=== PATIENT | female | born 1985 | race Caucasian/White ===

== ENCOUNTER 2025-03-03 06:03 | Observation (INO) ==
--- NOTE | 2025-02-21 10:32 | Anesthesiology Consultation ---
Date of Service February 21, 2025 Assessment & Plan Chart Review Chart Review: Acceptable Risk for Surgery and Patient NOT seen in Pre Admission Testing History Surgery Operation Date: 03/03/25 07:30 Proposed Procedures p Abdominoplasty with Suction Assiststed Lipectomy of Trunk - Laura Nguyen MD Height/Weight Height: 5 ft 1.5 in Weight: 66.678 kg Allergies Allergy/AdvReac Type Severity Reaction Status Date / Time cashew nut Allergy Severe rash and Verified 02/21/25 07:39 hives fluconazole [From Diflucan] Allergy Severe Hives Verified 02/21/25 07:39 Medications Home Medications Medication Instructions Recorded Confirmed Last Taken biotin 1 mg capsule 1 mg PO DAILY 01/14/25 02/21/25 Unknown calcium carbonate 600 mg PO DAILY 01/14/25 02/21/25 Unknown cholecalciferol (vitamin D3) 125 5,000 unit PO DAILY 01/14/25 02/21/25 Unknown mcg (5,000 unit) capsule cyanocobalamin (vitamin B-12) 500 500 mcg PO DAILY 01/14/25 02/21/25 Unknown mcg tablet dapsone 7.5 % topical gel 1 applic topical DAILY 01/14/25 02/21/25 Unknown duloxetine 30 mg capsule,delayed 30 mg PO HS 01/14/25 02/21/25 Unknown release fluoride (sodium) 1.1 % dental 1 applic dental DAILY 01/14/25 02/21/25 Unknown cream (SF 5000 Plus) levonorgestrel 21 mcg/24 hr (up to 1 device intrauterine UD 01/14/25 02/21/25 Unknown 8 years) 52 mg intrauterine device (Mirena) levothyroxine 88 mcg tablet 88 mcg PO QAM 01/14/25 02/21/25 Unknown menthol 5 % topical patch (Icy Hot 1 patch topical DAILY PRN Pain 01/14/25 02/21/25 Unknown (menthol)) multivitamin 1 tab PO DAILY 01/14/25 02/21/25 Unknown nystatin 100,000 unit/gram topical 1 applic topical DAILY 01/14/25 02/21/25 Unknown powder pantoprazole 40 mg tablet,delayed 40 mg PO QAM 01/14/25 02/21/25 Unknown release semaglutide (weight loss) 1 mg/0.5 1 mg subcut Q7D 01/14/25 02/21/25 Unknown mL subcutaneous pen injector (Wegovy) oxycodone-acetaminophen 5 mg-325 1 tab PO Q4H PRN pain #18 tabs 02/19/25 02/21/25 Unknown mg tablet (Endocet) semaglutide (weight loss) 0.5 0.5 mg subcut Q7D 02/21/25 02/21/25 02/15/25 mg/0.5 mL subcutaneous pen injector Past Medical History Medical History History of pneumonia ~2019 - no hospitalization. no issues since. History of COVID-19 ~2019 - no hopsitalization, resolved Hx of sleep apnea hx of cpap at night - resolved with weightloss Depression with anxiety GERD (gastroesophageal reflux disease) Hypothyroidism Acne Hypertriglyceridemia resolved with weightloss Iron deficiency Past Family History Family History Other Alcoholism Diabetes Dyslipidemia Hypertension Hypothyroidism No family history of adverse response to anesthesia Rheumatoid arthritis Past Surgical History Surgical History History of colonoscopy History of esophagogastroduodenoscopy (EGD) History of D&C x3 History of tonsillectomy 2012 History of cholecystectomy 2019 History of gastric bypass vertical gastric sleeve 2021 History of x2 Social History Smoking Status: Never smoker Do You Dip or Chew Tobacco: No Hx Alcohol Use: No Hx Substance Use: No
[2025-03-03] MEDS ORDERED: PROPOFOL IV EMULSION 10 MG/ML 20 ML VIAL IV ONE ×2 (06:41→06:50)
[2025-03-03] MEDS ORDERED: ROCURONIUM BROMIDE 10 MG/ML 5 ML VIAL IV ONE ×2 (06:41→08:39)
[2025-03-03] MEDS ORDERED: MIDAZOLAM HCL 1 MG/ML 2ML VIAL ONE (06:42)
[2025-03-03] MEDS: LACTATED RINGER'S 1,000 ML IV SCH (06:43)
[2025-03-03] MEDS ORDERED: DEXAMETHASONE SOD INJ 4 MG/ML VIAL ONE (06:44)
[2025-03-03] MEDS ORDERED: LIDOCAINE 2% 2 ML VIAL/AMP(20MG/ML) INFIL ONE (06:44)
--- NOTE | 2025-03-03 06:54 | History & Physical Bridge Note ---
Date of Service March 03, 2025 History & Physical Bridge Note I have examined the patient, reviewed the History & Physical and in the interval since the performance of the History & Physical I have noted the following changes of clinical significance: no changes noted
[2025-03-03] MEDS ORDERED: ONDANSETRON INJ 2 MG/ML 2 ML VIAL IV PRN ×2 (07:15→12:31)
[2025-03-03] MEDS ORDERED: ATROPINE SULFATE 0.1 MG/ML 10ML SYR IV PRN ×2 (07:15→11:49)
[2025-03-03] MEDS: TRANEXAMIC ACID 1000 MG IV SCH (07:40)
[2025-03-03] MEDS ORDERED: ACETAMINOPHEN 1000 MG/100 ML IV IV ONE (08:08)
[2025-03-03] MEDS ORDERED: HYDROmorphone INJ 2 MG/ML SYR/VIAL ONE (09:01)
[2025-03-03] MEDS ORDERED: ONDANSETRON INJ 2 MG/ML 2 ML VIAL ONE (09:07)
[2025-03-03] MEDS ORDERED: ePHEDrine sulfate 50 MG/5 ML SYR ONE (10:12)
[2025-03-03] MEDS: TRANEXAMIC ACID 1,000 MG **IV Pre-op IV SCH (10:20)
[2025-03-03] MEDS ORDERED: SUGAMMADEX SODIUM 200 MG/2 ML VIAL IV ONE (10:25)
[2025-03-03] MEDS: LIDOCAINE 1% LOCAL 20 ML VIAL ONE (10:32)
[2025-03-03] MEDS: EPINEPHrine INJ 1 MG/ML AMP ONE (10:33)
[2025-03-03] MEDS: BUPIVACAINE 0.25% PF 30 ML VIAL ONE (10:34)
[2025-03-03] MEDS: LIDOCAINE 1%/EPINEPHRINE 1:100,000 50 ML VIAL ONE (10:35)
--- NOTE | 2025-03-03 10:56 | Post Operative Brief Note ---
PG Immediate Post Op with CF Date of Surgery March 03, 2025 Pre & Post Diagnosis Operation Date: 03/03/25 07:30 Pre-Op Diagnosis: Abdominal Pannus, Intertrigo Post-Op Diagnosis: Abdominal Pannus, Intertrigo I identified the patient and participated in the time-out.: Yes Procedure Operation Date: 03/03/25 07:30 Actual Procedures p Abdominoplasty with Suction Assisted Lipectomy of Abdomen (Insurance Times: [phone], [phone], [phone], [phone])(Cosmetic Times: , [phone], [phone])(Not Applicable) - Laura Nguyen MD Surgeon Laura Nguyen MD Continuity Tester Janel Chacon PA-C Estimated Blood Loss 15 Findings Consistent with Post-Op Diagnosis 3 cm rectus diastasis Specimens Specimen Description: A: Abdominal Pannus Drains Joseph Catheter and Mikie-Branch Drain Anesthesia Type General Complications none
--- NOTE | 2025-03-03 10:57 | Operative Report ---
PG Post Operative Report Pre & Post Diagnosis Operation Date: 03/03/25 07:30 Pre-Op Diagnosis: Abdominal Pannus, Intertrigo Post-Op Diagnosis: Abdominal Pannus, Intertrigo I identified the patient and participated in the time-out.: Yes Procedure Operation Date: 03/03/25 07:30 Actual Procedures p Abdominoplasty with Suction Assiststed Lipectomy of Abdomen (Insurance Times: [phone], [phone], [phone], [phone])(Cosmetic Times: [phone], [phone], [phone])(Not Applicable) - Laura Nguyen MD Surgeon Laura Nguyen MD Customer Accounts Advisor Janel Chacon PA-C Estimated Blood Loss 15 Findings Consistent with Post-Op Diagnosis Specimens abdominal pannus Drains JPx2 Anesthesia Type General Complications none Indications s/p 100 lb weight loss, with overhanging abominal pannus and intertrigo Description of Procedure The risks, benefits, and alternatives of the procedure were explained to the patient, who agreed and signed consent. She was identified and marked in the preoperative holding area. She was brought to the operating room, where she was positioned supine and placed under general anesthesia without incident. A tidwell catheter was placed. Surgical site was prepped and draped sterilely. A time-out procedure was performed. I reassessed my markings which included a lower horizontal abdominal incision 8 cm superior to the vulvar commissure. Incision was marked bilaterally to the ASIS. I began with the liposuction portion of the procedure. 6 small stab incisions were marked within tissue that I plan to resect. 1% lidocaine with epinephrine was used anesthetize the sites (epigastric and lateral abdomen/flanks). 15 blade scalpel was used to make a small stab incision. Tumescent fluid was then infiltrated into the epigastric/periumbilical area. A total of 700 cc of tumescent fluid was infiltrated into these sites. A 3 mm liposuction cannula was selected. Pretunneling was performed from multiple directions into each area of planned liposuction. Following pretunneling, suction was applied. Suction was applied from multiple directions and the cannula was passed. Care was taken to keep the suction cannula beneath Sinan's fascia as much as possible in order to preserve blood supply. Endpoints of liposuction were improvement in contour such that the abdominal flap would be of uniform thickness. Minimal bloody aspiration was obtained. A total of approximately 425 cc of Lipo aspirate was obtained. I then injected 1% lidocaine with epinephrine along the planned lower abdominal incision. The lower abdominal incision was made using a 15-blade scalpel to incise epidermis and superficial dermis followed by electrocautery to incise deep dermis, subcutaneous fat, Sinan's fascia down to the abdominal wall. Electrocautery was used to elevate the anterior abdominal skin flap ligating the perforating vessels with electrocautery. Dissection was carried up to the level of the umbilicus in the midline. At this point, a 15-blade scalpel was used to circumscribe the umbilicus. A vertical midline incision was then made from the incision to the umbilicus and divided in the midline using electrocautery. The umbilicus was then dissected out using electrocautery down to abdominal wall. The umbilical stalk appeared viable throughout the procedure.I continued undermining the abdominal wall skin flap above the umbilicus to the xiphoid pro cess, significantly narrowing the dissection to avoid jeopardizing blood supply.Following completion of this, I began repair of the rectus diastasis, which was about 3 cm in greatest diameter and extended nearly the full length of the abdomen, widest above the umbilicus. Plication from the xiphoid to the umbilicus and from the umbilicus to the pubic symphysis was performed using 0 Prolene interrupted [id number] sutures. 0 Prolene running suture was then placed to oversew the [id number] sutures and reinforced the repair. At this point, the bed was flexed and the mid portion of the superior skin flap was inset above the mons pubis using 2-0 Vicryl suture. Skin flaps were marked for excision. A 15-blade scalpel was used to make these incisions and the incision was deepened through dermis, subcutaneous fat, Sinan's fat using electrocautery. Some subscarpal fat was resected directly to improve contour. 15 Yoruba Dawit drains were placed in the wound bed and brought out through a separate stab incision in the mons pubis. The drains were sutured into place using 3-0 nylon. The umbilicus was brought out through an inverted triangular incision in the abdominal wall. This was performed using a 15-blade scalpel.Wound closure was then begun lateral to medial using 2-0 Vicryl Sinan's fascia sutures, 2-0 Vicryl deep dermal sutures, 2-0 PDO running superficial Quill suture, 3-0 Monocryl running subcuticular suture. Umbilicus was brought out through the inverted triangle incision and was sutured into place using 4-0 chromic half buried horizontal mattress sutures. The umbilicus was dressed using Xeroform and the incision was dressed using Sylke followed by dry dressings and an abdominal binder. Dry dressings, an abdominal binder and a surgical bra were placed. The patient was awakened and transferred to recovery in satisfactory condition. Janel Chacon PA-C was present and scrubbed throughout the entire procedure, assisting with retraction and simultaneous wound closure. I attest to the content of the Intraoperative Record and any orders documented therein. Any exceptions are noted below.
--- NOTE | 2025-03-03 11:35 | Surgery Progress Note ---
Date of Service March 03, 2025 Assessment & Plan (1) S/P panniculectomy: Plan: Doing well, admit for observation today and anticipate d/c in the AM. Subjective Susy is resting comfortably, pain is well controlled. Physical Exam Physical Exam: abd binder in place, drains with serosang output Results & Data Vital Signs (Past 12 Hours) Vital Signs Temp Pulse Pulse Resp BP Pulse Ox O2 Del Method 03/03/25 11:15 36 C L 115 H 12 120/67 95 Room Air 03/03/25 06:24 36.7 C 80 20 127/84 99 Room Air PG Care Time/CCT Total # of Minutes Spent Total Time Spent with Patient: Total time spent is greater than 50% in coordination of care (as documented) at patient's floor/unit and/or counseling patient: Coding Level of Care Code 30983 Post Operative Follow-Up Diagnoses S/P panniculectomy Z98.890
[2025-03-03] MEDS: MEPERIDINE HCL 25 MG/ML CARP/VIAL IV PRN (11:53)
[2025-03-03] MEDS: MEPERIDINE HCL 25 MG/ML CARP/VIAL ONE (11:54)
--- NOTE | 2025-03-03 11:54 | Anesthesiology Progress Note ---
Date of Service March 03, 2025 Anesthesia Post Procedure Vital Signs Vital Signs: Temp Pulse Pulse Resp BP Pulse Ox O2 Del Method 03/03/25 11:45 91 H 12 125/68 100 Room Air 03/03/25 11:35 92 H 12 114/70 99 Room Air 03/03/25 11:25 103 H 14 118/59 L 100 Room Air 03/03/25 11:15 36 C L 115 H 12 120/67 95 Room Air 03/03/25 06:24 36.7 C 80 20 127/84 99 Room Air Pain Intensity Abdomen: Pain Intensity: 5 Transfer of Care Handoff Completed per policy Notes Mental Status: alert / awake / arousable Patient Amnestic to Procedure: Yes Nausea / Vomiting: adequately controlled Pain: adequately controlled Airway Patency, RR, SpO2: stable & adequate BP & HR: stable & adequate Hydration State: stable & adequate Anesthetic Complications: no major complications apparent
[2025-03-03] MEDS ORDERED: MoRPHine SULFATE 2 MG/ML CARP IV PRN ×2 (12:31)
[2025-03-03] MEDS ORDERED: diphenhydrAMINE 50 MG/ML VIAL IV PRN (12:31)
[2025-03-03] MEDS ORDERED: PROMETHAZINE 12.5 MG/50.5 ML BAG IV PRN (12:31)
[2025-03-03] MEDS ORDERED: diphenhydrAMINE Capsule 25 MG CAP PO PRN (12:31)
[2025-03-03] MEDS ORDERED: LORazepam 0.5 MG TAB PO PRN (12:31)
[2025-03-03] MEDS ORDERED: LEVONORGESTREL (MIRENA) IUD PV SCH (12:45)
[2025-03-03] MEDS: D5W AND 1/2NSS 1,000 ML IV SCH (13:31)
[2025-03-03] MEDS: ACETAMINOPHEN 325 MG TAB PO PRN (15:56)
[2025-03-04 02:58] VITALS: RESP 16
[2025-03-04 07:28] VITALS: BP 99/65; PULSE 80; TEMP 98.4; O2SAT 95
[2025-03-04] MEDS: MULTIVITAMIN TAB PO SCH (08:01)
[2025-03-04] MEDS: LEVOTHYROXINE SODIUM 88 MCG TABLET PO SCH (08:01)
--- NOTE | 2025-03-04 09:08 | Surgery Progress Note ---
Date of Service March 04, 2025 Assessment & Plan (1) S/P panniculectomy: Plan: D/C home after able to void. Patient was instructed on changing umbilical packing. Admission and Anticipated Discharge Date Admission Date: March 03, 2025 Subjective Resting in bed- has ambulated in halls. Joseph removed but has not voided yet. Pain is controlled. Physical Exam Physical Exam: drains stripped- serosang output. binder and dressing removed- incision CDI. umbilicus viable. Results & Data Vital Signs (Past 12 Hours) Vital Signs Temp Pulse Pulse Resp BP Pulse Ox O2 Del Method 03/04/25 07:27 36.9 C 80 16 99/65 L 95 Room Air 03/04/25 02:57 36.6 C 70 16 104/70 96 Room Air 03/03/25 23:21 36.7 C 72 18 100/64 96 Room Air PG Care Time/CCT Total # of Minutes Spent Total Time Spent with Patient: Total time spent is greater than 50% in coordination of care (as documented) at patient's floor/unit and/or counseling patient: Coding Level of Care Code 29792 Post Operative Follow-Up Diagnoses S/P panniculectomy Z98.890
== END 2025-03-04 10:10 | disposition home or self-care (01) ==
LOC: 3N 06:03 → ASU 06:03